=== PATIENT | male | born 1980 | race Caucasian/White ===

== ENCOUNTER 2017-01-18 04:22 | Emergency (ER) | payer OTHER ==
[~2017-01-18] VITALS: Ht 182.9 cm; Wt 90.7 kg
[2017-01-18 04:30] VITALS: BP 135/75
[2017-01-18] MEDS ORDERED: AMOXICILLIN875 MG PO (04:35)
[2017-01-18] MEDS ORDERED: IBUPROFEN 600600 M1 PO (04:35)
[2017-01-18] MEDS ORDERED: NORCO 5-325 TA1 EACH PO (04:35)
== END 2017-01-18 05:07 | disposition home or self-care (01) ==
LOC: ER 04:22
DX: K04.7 Periapical abscess without sinus (principal); F17.210 Nicotine dependence, cigarettes, uncomplicated; F10.99 Alcohol use, unspecified with unspecified alcohol-induced disorder